=== PATIENT | female | born 1960 | race Two or more races ===

== ENCOUNTER → 2024-02-05 | Outpatient (CLI) | payer MEDICAID, SELFPAY ==
--- NOTE | 2024-02-05 15:00 | XR_ITS ---
Examination: Breast ultrasound, unilateral, right complete Date and time of exam: February 05, 2024 at 1511 hrs. Indications: Mammogram November 25, 2023 4 mm nodular density upper right breast MLO view Technique: Real-time waddell scale ultrasonographic imaging performed right breast including all 4 quadrants as well as nipple retroareolar and axillary region. Findings: No cystic or solid mass Impression: BI-RADS Category 1: Negative study
--- NOTE | 2024-02-05 15:30 | XR_ITS ---
Examination: Diagnostic digital mammography, unilateral, right Computer aided detection 3-D breast Tomosynthesis, unilateral Date and time of exam: February 05, 2024 1518 hrs. Indications: Mammogram November 25, 2023 4 mm nodular density upper right breast MLO view Technique: Nonmagnified MLO, CC views of the right breast have been obtained, reconstructed from 3-D Tomosynthesis images. R2 computer aided detection program utilized for evaluation of suspicious masses and/or abnormal calcifications. 3-D Tomosynthesis images obtained. Findings: Scattered areas of fibroglandular density 4 mm focal asymmetry is confirmed outer right breast on CC view Impression: BI-RADS category 3: Probably benign findings One additional 6 month right mammogram follow-up is needed
== END | disposition home or self-care (01) ==
PROVIDERS: PCP Family Medicine; Referring Provider Nurse Practitioner; Visit Provider Nurse Practitioner
DX: R92.331 Mammographic heterogeneous density, right breast (principal)
CPT/HCPCS: 76641; 77061; 77065; G0279

== ENCOUNTER → 2024-02-16 | Outpatient (CLI) | payer MEDICAID, SELFPAY ==
--- NOTE | 2024-02-16 09:00 | XR_ITS ---
MRI abdomen, without contrast. MRCP Date and time of exam: February 16, 2024 0911 hrs. Indications: Diagnosis fatty liver, hepatomegaly, liver hepatic fibrosis, ultrasound liver November 25, 2023 enlarged common bile duct 12 mm Technique: Multiple axial and coronal images of the abdomen have been obtained with the Siemens 1.5T MRI scanner. Images obtained included T1 weighted transverse images, T2-weighted transverse images, T2-weighted transverse images fat-suppressed, T2 weighted haste fat suppressed transverse images, T1 weighted images, in and out of phase images, T2-weighted coronal images, breath hold, T2 weighted haze coronal images as well as T2 weighted coronal thick slab images, MRCP. Findings: No focal liver lesions Absent gallbladder Abnormal enlargement common hepatic common bile duct 13 mm Abrupt tapering in the distal common bile duct coronal image 17 Minimal dilatation pancreatic duct, no peripancreatic edema No splenic lesion No hydronephrosis Negative for ascites Impression: Abnormal extra hepatic biliary tract dilatation Recommend ERCP follow-up to exclude malignant stricture distal common bile duct at the ampulla
== END | disposition home or self-care (01) ==
PROVIDERS: PCP Nurse Practitioner; Referring Provider Nurse Practitioner; Visit Provider Nurse Practitioner
DX: K83.8 Other specified diseases of biliary tract (principal)
CPT/HCPCS: S8037; 74181

== ENCOUNTER → 2024-08-19 | Outpatient (CLI) | payer MEDICAID, SELFPAY ==
--- NOTE | 2024-08-19 13:00 | XR_ITS ---
Examination: Abdomen sonogram, complete Date and time of exam: August 19, 2024 1252 hours INDICATIONS: Elevated liver function tests on laboratory examination one month ago, cholecystectomy history. Technique: Multiple real-time grayscale transabdominal sonographic images of the abdomen have been obtained. Findings: Absent gallbladder Common bile duct 1.1 cm no stones Pancreas obscured by bowel gas Mid and distal aorta visualized not enlarged Liver 14.5 cm fatty infiltration mildly irregular contour Normal hepatopedal portal venous flow Patent IVC Right kidney 11.5 cm cortex 1.5 cm Left kidney 11.7 cm cortex 1.9 cm Spleen 10.9 cm IMPRESSION: Common bile duct enlarged 1.1 cm, no definite stones, clinical correlation advised If biliary colic is a clinical consideration, consider repeat MRCP follow-up
== END | disposition home or self-care (01) ==
LOC: CDIM 12:40
PROVIDERS: PCP Internal Medicine Gastroenterology; Referring Provider Internal Medicine Gastroenterology; Visit Provider Internal Medicine Gastroenterology
DX: K83.8 Other specified diseases of biliary tract (principal)
CPT/HCPCS: 76700